=== PATIENT | female | born 1950 | race Caucasian/White ===

== ENCOUNTER 2025-04-22 12:08 | Inpatient (IN) | payer OTHER, SELFPAY ==
[2025-04-22] VITALS (31 sets, daily range): BP systolic 88–122; BP diastolic 62–111; BMI 24.2; BMI 22.5
[2025-04-22 09:34] LABS: Hematocrit 44.4 % (37.0-47.0); Hemoglobin 15.2 g/dL (12.0-16.0); Mean Corp Hgb Conc. 34.2 g/dL (33.0-37.0); Mean Corpuscular Volume 93.5 fL (81.0-99.0); Nucleated Red Blood Cells % 0 %; Platelet Count 334 10^3/uL (130-400); Red Cell Dist. Width 14.6 % (11.5-14.5)
[2025-04-22] MEDS: CARDIZEM 15 MG IV (09:39)
[2025-04-22] MEDS: CARDIZEM 125 IV ×2 (09:40→22:01)
[2025-04-22 09:57] LABS: ALT (SGPT) 113 U/L (0-35); AST (SGOT) 63 U/L (14-36); Albumin 3.8 g/dl (3.5-5.0); Alkaline Phosphatase 72 U/L (38-126); Blood Urea Nitrogen 17 mg/dl (7-17); Calcium 8.9 mg/dl (8.4-10.2); Carbon Dioxide 21 mmol/L (22-30); Chloride 108 mmol/L (98-107); Estimated Creatinine Clearance 67 ml/min; Glucose 100 mg/dl (70-99); Magnesium 2.1 mg/dl (1.6-2.3); Potassium 4.3 mmol/L (3.5-5.1); Sodium 136 mmol/L (135-145); Total Protein 5.7 g/dl (6.3-8.2); eGFR > 60.00
[2025-04-22 09:59] LABS: Troponin I 0.015 ng/ml
--- NOTE | 2025-04-22 10:18 | ED.GENMED ---
History of Present Illness
General
Chief Complaint: Chest Pain
Time Seen by Provider: 04/22/25 09:02
History of Present Illness
History of Present Illness:
74-year-old female with history of paroxysmal A-fib presents to the emergency department for evaluation of shortness of breath and dry cough that has been ongoing for the past week. She does not have any chest pain but describes a tightness
sensation. No associated fever, chills, sweats, leg swelling. She is not currently anticoagulated despite her known history of PAF
Past History
Past History
ED Past Medical History: None
ED Past Surgical History: None
Social History
Tobacco: Non-smoker
Alcohol: None
Review of Systems
Review of Systems
Allergies reviewed?: Yes
All Other Systems: ROS reviewed and negative except as documented in HPI and ROS
Phy Exam
Physical Exam
Physical Exam:
GEN: Well appearing, NAD, WDWN
HEENT: Oral mucosa moist, no scleral icterus
Cardiac: Markedly tachycardic, no murmur
Lung: No respiratory distress, no tachypnea, diminished right breath sounds
MSK: No gross deformity or injuries
Skin: Good color, no pallor or jaundice, no rashes
Neuro: AO x3, moves all extremities freely
Psych: Calm, cooperative
Scores
Heart Score for Chest Pain Patients
STEMI patient?: No
History: Slightly or Non-Suspicious
ECG: Nonspecific Repolarization
Age: >/= 65 years
Risk Factors: 1 or 2 Risk Factors
Troponin: </= Normal Limit
Heart Score for Chest Pain Patients: 4
Heart Score Risk: 20.3% MACE over next 6 weeks
Course
Orders/Labs/Results
Orders:
Orders
04/22/25 08:54
Electrocardiogram (*1) Urgent
Reason for Study: Chest Pain
EKG- Treatment ONCE
04/22/25 09:07
Diltiazem HCl [Cardizem] 15 mg IV NOW STA
04/22/25 09:08
CR Chest Portable - 1 View Urgent
Comment:
Reason For Exam: SOB
Reason Study Needs to be Portable: Other
04/22/25 09:15
Diltiazem 125 mg/125 ml Nss [Cardizem] 125 mg in 125 ml IV PER PROTOCOL
Initial dose in mg/hr, then titrate:: 5
Titrate to keep:: Heart rate 80-100 bpm
Titrate by mg/hr:: 5 mg/hr
Frequency of titrations (minutes):: 15
Maximum dose in mg/hr:: 15
04/22/25 09:21
Complete Blood Count/With Diff Urgent
Comprehensive Metabolic Panel Urgent
Magnesium Urgent
NT-proBNP Stat
Comment: COMBINED
Troponin I Stat
04/22/25 09:32
Diltiazem 125 mg/125 ml Nss [Cardizem] 125 mg in 125 ml .ROUTE .STK-MED
04/22/25 Lunch
Regular
At Your Request: Full Participation
04/22/25 10:25
Heparin 4,000 units IV NOW STA
Nursing to Place Non Medication Order As Directed
Physician Order: PTT 6 hours after initial start of Heparin infusion
Above order entered?: Yes
04/22/25 10:30
Heparin 62012 Units/250 ml 25,000 units in 250 ml IV PER PROTOCOL
Weight to be used for heparin protocol in kilograms (kg):: 67.9
Protocol:: Cardiac Tx/Acute Coronary
PTT Goal Range to be used:: PTT 73 to 111 seconds
Order type:: Initial
INITIAL Infusion Dose (UNITS/KG/hr) & then follow protocol:: 15 units/kg/hr
Infusion Dose in UNITS/hr & then follow protocol (UNITS/hr):: 1,000
INFUSION RATE in mL/hr & then follow protocol (mL/hr):: 10
PTT less than or equal to 64 seconds:: Increase rate by 200 units/hr (+ 2 mL/hr)
PTT 64.1 to 72.9 seconds:: Increase rate by 100 units/hr (+ 1 mL/hr)
PTT 73 to 111 seconds:: Target Range. No change in rate.
PTT 111.1 to 130.9 seconds:: Decrease rate by 100 units/hr (- 1 mL/hr)
PTT 131 to 199.9 seconds:: HOLD for 1 hr. Then decrease rate by 200 units/hr (- 2 mL/hr)
PTT greater than or equal to 200 seconds:: HOLD for 2 hrs & Notify Provider. Then decrease by 200 units/hr (-
2 mL/hr)
Lab follow-up:: Each change, PTT q6h until 2 consecutive are therapeutic. Then PTT
daily.
04/22/25 10:37
PTT Urgent
Comment: Obtain baseline before beginning heparin infusion if not already collected
04/22/25 11:13
Admit/Transfer Patient As Directed
Co-Sign Provider:
Level of Care: Inpatient admission
Assign to:: IVU
Physician / Group: Ellen
Diagnosis: Afib with RVR
Reason for Hospitalization: Above
Expected length of stay greater than two midnights?: Yes
ELOS- Estimated Length of Stay in days: 2
I certify the patient meets the requirements for IP care: Yes
PRN Pain Medication Management As Directed
May give lesser potent ordered pain med per pt: Yes
preference::
Protocol:: Medication orders for pain may be administered in a
manner that supports deferring to patient preference
when the pt is:
- Requesting an ordered lesser potent pain medication.
Least to most potent pain medications are defined
as: acetaminophen < NSAID < tramadol < opioids
(morphine, oxycodone, hydromorphone).
- Requesting a lesser dose of the same medication IF
ORDERED.
- Requesting a less intrusive route of administration
if both routes are prescribed by the provider (PO <
IV).
04/22/25 11:15
Code Status As Directed
Resuscitation Status: Full Code
04/22/25 17:17
PTT Urgent
Abnormal Lab Results
04/22/25
09:21
MCH 32.0 H pg
(27.0-31.0)
RDW 14.6 H %
(11.5-14.5)
MPV 10.6 H fL
(7.4-10.4)
Absolute Monos (auto) 0.7 H 10^3/uL
(0.1-0.6)
Lymphocytes % 18.8 L %
(20.5-51.1)
Chloride 108 H mmol/L
(98-107)
Carbon Dioxide 21 L mmol/L
(22-30)
Glucose 100 H mg/dl
(70-99)
AST 63 H U/L
(14-36)
ALT 113 H U/L
(0-35)
Total Protein 5.7 L g/dl
(6.3-8.2)
04/22/25 09:21
04/22/25 09:21
Vital Signs
Initial and Last Documented VS:
Initial Vital Signs
Temp Pulse Resp BP Pulse Ox
98.0 F 157 18 112/75 96
04/22/25 08:59 04/22/25 08:59 04/22/25 08:59 04/22/25 08:59 04/22/25 08:59
Last Documented Vital Signs
Temp Pulse Resp BP Pulse Ox
98.0 F 87 22 90/75 95
04/22/25 08:59 04/22/25 13:30 04/22/25 13:30 04/22/25 13:30 04/22/25 13:30
MDM/Problems Addressed
MDM/Problems Addressed:
74-year-old female presenting with rapid atrial fibrillation and mild acute CHF likely secondary to tachyarrhythmia. She was started on IV diltiazem with good rate control, blood pressures did become somewhat soft however she maintained adequate
MAP during this time. She is not a cardioversion candidate at this time given lack of anticoagulation although certainly would be reasonable for systemic anticoagulation in the future given elevated [id number] score. Will admit to the
hospitalist service for further management
Comment
Comment:
EKG independently interpreted by me shows a rapid atrial fibrillation at a rate of [address] depressions likely subendocardial ischemia
*Pulse Oximetry
SaO2: 95
Oxygen Mode of Delivery: Room air
Patient hypoxic: no
*Critical Care Note
Total Time (30-74mins, 75-104mins- exclusive of procedures): 40 mins
comment:
Critical care time: 40 min
Critical care time was exclusive of: Separately billable procedures, treating other patients, and teaching time
Critical care was necessary to treat or prevent imminent or life-threatening deterioration of the following conditions: Rapid Atrial fib
Critical care time spent personally by me on the following activities:
[x] Review of old charts
[x] Obtaining history from patient or surrogate
[x] Ordering and review of the laboratory studies
[x] Ordering and review of radiographic studies
[x] Ordering and performing treatments and interventions
[x] Patient patient's response to treatment
[x] Development of treatment plan with patient or surrogate
ED Attending Note
-
Portions of this chart may have been created with voice recognition software.� Occasional wrong word or��sound alike� substitutions may have occurred due to the inherent limitations of voice recognition software.
Discharge Plan
Departure
Patient Disposition: Admit
Date of Disposition: 04/22/25
Time of Disposition: 10:27
Admit to: IMU
Presentation/result/management discussed w/ accepting MD/DO: Hospitalist
Discharge Problem:
Atrial fibrillation with RVR
Interventions
Interventions:
*Risk Screen - Suicide Last Done: 04/22/25 08:59
*General Assessment Last Done: 04/22/25 11:59
*Neglect/Abuse Screening Last Done: 04/22/25 08:59
*ED- Fall Risk Assessment Last Done: 04/22/25 11:59
*ED COVID-19 Vaccine History Last Done: 04/22/25 11:59
ED- Cardiac Assessment Last Done: 04/22/25 09:23
[2025-04-22 10:59] LABS: APTT 27.3 Sec (23.4-35.0)
[2025-04-22] MEDS: HEPARIN 4000 UNITS IV (11:17)
[2025-04-22] MEDS: HEPARIN 25000 UNITS/250 ML IV (11:17)
--- NOTE | 2025-04-22 11:18 | HPS.HSE ---
Family Physician
-
Family Physician: Judy Sherman
Chief Complaint
-
Exertional dyspnea and chest pressure
History of Present Illness
Patient is a 74 years old female with history of paroxysmal A-fib,, CHF mildly reduced EF, colorectal carcinoma who presents to the emergency room with exertional dyspnea, chest pressure and palpitations. Patient has been hospitalized in 2019 when
found to be in paroxysmal A-fib, CHF, pleural effusion requiring thoracentesis. At that time patient required cardioversion and was discharged on beta-simone and Eliquis. Shortly after within the months as patient could recall she made decision
to stop all the medications given absence of symptoms. She had no cardiology follow-up since that time. Her most recent hospitalization was for elective sigmoid resection for colorectal carcinoma back in May 2023. At that time patient reports
no cardiovascular issues.
Medical History
Past Medical History
Past Medical History: Reports Arrhythmia (Paroxysmal A-fib) and Cancer (Colorectal carcinoma)
Past Surgical History: Reports Bowel Resection
Social History
Tobacco: Non-smoker
Alcohol: None
Drug: None
Living: With Family
Family History
Family History: Not pertinent
Allergies / Home Medications
Allergies reflects when Allergies were last updated in [facility].
Home Medications with original date entered in [facility]
Allergy/Medication List:
Allergies
Allergy/AdvReac Type Severity Reaction Status Date / Time
morphine Allergy Arm Verified 04/22/25 09:00
Swelling
when given
IV
Home Medications
szpkmwxh-nhzd-jpef 8 mg-folic 400 mcg-K 50 mcg-lutein 300 mcg tablet (Centrum Silver Women) 1 tab PO DAILY Supplement 05/22/23
acetaminophen 325 mg tablet 650 mg (2 x 325 mg) PO Q4HPRN PRN mild pain #1 tab 05/27/23
Review of Systems
-
A 12 point ROS was completed and negative except as noted: Yes
Physical Exam
Vital Signs
Vital Signs
Temp Pulse Resp BP Pulse Ox
98.0 F 87 21 120/102 95
04/22/25 08:59 04/22/25 09:45 04/22/25 09:45 04/22/25 09:45 04/22/25 10:20
Physical Exam
General: Well Developed, Well Nourished and No Apparent Distress
HEENT: NormoCephalic, Moist mucous membranes and Atraumatic
Respiratory: Clear
Cardiac: S1/S2 and Regular Rhythm; No Murmur or Rub
GI: Soft, Non Tender, Non Distended and Normal Bowel Sounds; No Organomegaly
Rectal: Deferred by Provider
Musculoskeletal: No Clubbing, No Cyanosis and No Edema
Skin: No Rash
Neuro: Nonfocal/grossly intact
Laboratory Results
-
04/22/25 09:21
04/22/25 09:21
Laboratory Results
APTT 27.3 Sec (23.4-35.0) 04/22/25 10:37
Total Bilirubin 1.2 mg/dl (0.2-1.3) 04/22/25 09:21
AST 63 U/L (14-36) H 04/22/25 09:21
ALT 113 U/L (0-35) H 04/22/25 09:21
Alkaline Phosphatase 72 U/L (38-126) 04/22/25 09:21
Troponin I 0.015 ng/ml 04/22/25 09:21
Impression/Plan
-
IMPRESSION:
Paroxysmal atrial fibrillation.
CHF unknown EF (presents with exertional dyspnea, elevated pro CHF BNP, mild interstitial edema on chest x-ray) in the settings of rapid ventricular rate
Elevated transaminases
History of moderate to severe TR in the settings of volume overload.
History of pleural effusion related to CHF requiring thoracentesis in 2019
PLAN:
Paroxysmal atrial fibrillation with RVR.
Patient with prior history of such. Not on any rate control or anticoagulation meds prior to admission.
Noted mild hypotension improved with rate control
Initiated on IV Cardizem drip
CHADSVasc 3 (age, female, CHF) initiated on IV heparin drip
Echocardiogram
Cardiology evaluation
CHF, unknown EF.
She has prior history of such in the settings of rapid A-fib. At that time mild reduced EF.
Repeat echocardiogram.
Monitor volume status closely.
May require gentle diuresis.
Abnormal LFT with elevation of transaminases baseline possibly secondary to congestion.
Follow. Consider further workup including imaging if up-trending
Full code
DVT prophylaxis heparin
--- NOTE | 2025-04-22 14:22 | CON.CAR ---
Addendum entered and electronically signed by Rosanna Sexton MD 04/22/25 17:36:
I saw and evaluated the patient, and I provided the substantive portion of the medical decision making.
I reviewed and agree with the note by Myriam Cuellar and it accurately reflects our care.
I personally performed the medical decision making of the this encounter and my assessment and plan is below:
74-year-old female with a past medical history of paroxysmal atrial fibrillation in 2019 complicated by CHF and colorectal cancer in 2022 who stopped all her medications upon completion of the initial prescriptions in 2019 presented to the ER for
shortness of breath, dyspnea on exertion and fatigue for 1 week. She was noted to be in atrial fibrillation with rapid ventricular response. Currently, she is feeling better but still knows that something is not right in her chest. She had a
stressful week with the of her tkxivz-uw-vpv. She is quite active walking 2 miles a day. 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
On exam she is irregularly irregular rate and rhythm with a normal S2 no murmurs or gallops were appreciated lungs were clear to auscultation bilaterally alert and oriented x 3 in no apparent distress.
EKG shows atrial fibrillation with rapid ventricular response and T wave inversions.
Troponin is insignificant at 0.017, 0.015, 0.016.
Assessment and plan
Recurrent atrial fibrillation in a patient with a known history of paroxysmal atrial fibrillation.' Fortunately she was not compliant with medications and has not been on Eliquis. Therefore we will arrange for KEILA cardioversion tomorrow. Will
arrange to keep her n.p.o. after midnight.
History of heart failure with recovered EF, was only ever mildly depressed at 45 to 50%: Will update echocardiogram and EF. Initiate GDMT as needed. She is [place] Heart Association class I without any apparent decompensation currently.
[ ]
Original Note:
Consultation
Consultation Request
Date/Time Consultation Requested: 04/22/25 11a
Date/Time Consultation Performed: 04/22/25 1:45p
Requesting Provider: Dr. Hughes
Performing Provider: SYED Tate for Dr. Sexton
Reason for Consultation: rapid Afib
Medical History
-
Chief Complaint: palpitations, sob
History of Present Illness:
Mrs. Dias is a 74 yo female with paroxysmal Afib (12/2019 s/p DCCV, was on Eliquis and Toprol 25mg daily but stopped meds after completed prescription) complicated by CHF/pleural effusion requiring thoracentesis 12/2019, and colorectal cancer 2022 s/p
resection, who presents to the ER with c/o palpitations, SOB/YANEZ and fatigue for 1 week. She was noted to be in rapid Afib in 160s on arrival to ER. She is admitted to the hospitalist service and we are consulted for rapid Afib. She is on a
Cardizem drip at 10 mg/hr and rates have improved into the low 100s. She currently denies any cardiac symptoms. [id number] score is 3 (age, female, CHF), though she is not currently taking Eliquis or Toprol.
Past Medical History
Past Medical History: Other (As above)
Past Surgical History: Other (as above)
Social History
Tobacco: Non-Smoker
Alcohol: Occasional (1 glass of wine a week)
Personal:
Living: With Family
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
Allergies / Home Medications
Allergy/AdvReac Type Severity Reaction Status Date / Time
morphine Allergy Arm Verified 04/22/25 09:00
Swelling
when given
IV
�Medication �Instructions �Recorded �Confirmed �Type
vnosmfjv-mffs-tqqf 8 mg-folic 400 1 tab PO DAILY Supplement 05/22/23 04/22/25 History
mcg-K 50 mcg-lutein 300 mcg tablet
(Centrum Silver Women)
acetaminophen 325 mg tablet 650 mg (2 x 325 mg) PO Q4HPRN PRN 05/27/23 04/22/25 Rx
mild pain #1 tab
Review of Systems
-
History Source: Patient
All other systems: Negative unless noted
Physical Exam
Vital Signs
Temp Pulse Resp BP Pulse Ox
98.0 F 87 22 90/75 95
04/22/25 08:59 04/22/25 13:30 04/22/25 13:30 04/22/25 13:30 04/22/25 13:30
Lab Results
04/22/25 09:21
04/22/25 09:21
Troponin I 0.015 ng/ml 04/22/25 09:21
Hmr-T-Klrggqyfpah Pept 4300 pg/ml 04/22/25 09:21
Eri-H-Fhwdrbijavf Pept Cancelled 04/22/25 09:21
Physical Exam
General: Well Developed, Well Nourished and No Apparent Distress
HEENT: Normocephalic, Anicteric and Moist Mucous Membranes
Respiratory: Clear and Non Labored Respirations
Cardiac: S1/S2 and Irregular Rhythm (tachycardia )
Breast: Deferred by me
GI: Soft, Non Tender, Non Distended and Normal Bowel Sounds
Rectal: Deferred by Provider
Genito-urinary: Clear Urine
Musculoskeletal: No Clubbing, No Cyanosis and No Edema
Skin: Warm and Dry
Neuro: AO x 3
Hematologic/Lymphatic: No Lymphadenopathy
Psych: Calm
Impression / Plan
-
Atrial fibrillation - rapid ventricular response, duration unknown.
- Initially rates in the 160s, now on Cardizem drip with rates in the low 100s and currently asymptomatic.
- Previously she was on Toprol 25 mg daily, but when the prescription ran out she stopped the medication.
- [id number] score is 3 (age, female, CHF), she was on Eliquis 5 mg twice daily but when the prescription ran out she stopped the medication.
- Start Eliquis 5 mg twice daily.
- Plan for KEILA and cardioversion tomorrow, NPO after midnight.
HFpEF - chronic in the setting of rapid Afib back in 12/2019.
- no overt HF on exam.
- monitor.
Colorectal cancer - s/p resection 2022.
- stable.
Data Reviewed
-
EKG: Tracing Personally Visualized and interpreted (Afib 160 bpm )
Radiology: Report Reviewed by me (CXR: no pulmonary edema)
Labs: Labs Reviewed by me
Old Records: Reviewed
--- NOTE | 2025-04-22 16:04 | PTCARENOTE ---
Rec'd pt from ED. Cardizem gtt infusing at 10ml/hr and heparin gtt infusing at 10 ml/hr. Tele- afib. HR 80-110s. Assessment completed as documented. Pt has no complaints pain/discomfort/sob at this time. Oriented pt to room. Currently in bed; call
arely w/in reach.
[2025-04-22 17:19] LABS: APTT 86.6 Sec (23.4-35.0)
[2025-04-22 17:25] LABS: Troponin I 0.016 ng/ml
[2025-04-22] MEDS: TYLENOL 650 MG PO (19:53)
[2025-04-22 22:51] LABS: APTT 113.2 Sec (23.4-35.0)
[2025-04-22 23:03] LABS: Troponin I 0.017 ng/ml
[2025-04-22] MEDS: PROTONIX IV 40 MG IV (23:24)
[2025-04-22] MEDS: NSS (PRESERVATIVE FREE) 10 ML IV (23:24)
[2025-04-23] VITALS (7 sets, daily range): BP systolic 103–128; BP diastolic 76–91; BMI 22.3
--- NOTE | 2025-04-23 00:03 | PTCARENOTE ---
Pt reported chest pressure rating pressure as 4/10 at 22:30. Pt denies chest pain or difficulty breathing pulse ox 93% on room air. Pt remains afib on TELE monitor and bp 96/68. EKG obtained and lab work collected as ordered. SYED Alberto
notified via [employer]. Rec'd order for extra strength Tylenol and IV Protonix. Pt refused tylenol but got IV protonix as ordered. 2L oxygen applied via nasal canula for comfort, pt reported relief with oxygen at 22:46. Cardizem infusing as
ordered. Pt now resting with call mcgee in reach. See MAR and flowchart for full pt care and assessment. Pt agreed to report any worsening chest pain or discomfort.
[2025-04-23 05:13] LABS: Hematocrit 41.0 % (37.0-47.0); Hemoglobin 14.0 g/dL (12.0-16.0); Mean Corp Hgb Conc. 34.1 g/dL (33.0-37.0); Mean Corpuscular Volume 93.4 fL (81.0-99.0); Nucleated Red Blood Cells % 0 %; Platelet Count 259 10^3/uL (130-400); Red Cell Dist. Width 14.9 % (11.5-14.5)
[2025-04-23 05:23] LABS: APTT 111.1 Sec (23.4-35.0)
[2025-04-23 05:51] LABS: Blood Urea Nitrogen 18 mg/dl (7-17); Calcium 8.6 mg/dl (8.4-10.2); Carbon Dioxide 23 mmol/L (22-30); Chloride 111 mmol/L (98-107); Estimated Creatinine Clearance 75 ml/min; Glucose 88 mg/dl (70-99); Potassium 4.3 mmol/L (3.5-5.1); Sodium 138 mmol/L (135-145); eGFR > 60.00
[2025-04-23] MEDS: THERAGRAN 1 TABLET PO (07:46)
[2025-04-23] MEDS: ELIQUIS 5 MG PO (09:28)
[2025-04-23 09:48] LABS: ALT (SGPT) 97 U/L (0-35); AST (SGOT) 44 U/L (14-36); Albumin 3.3 g/dl (3.5-5.0); Alkaline Phosphatase 60 U/L (38-126); Total Protein 5.1 g/dl (6.3-8.2)
--- NOTE | 2025-04-23 11:06 | W.PN.CD ---
Today's Communication / Plan
-
IV diuresis
start Valsartan tonight
Pricing of GDMT
NPO after midnight for cath
Impression / Plan
-
A/P: 74 yo female with hx of paroxysmal AF, HFmildlyreducedEF, colorectal CA who came in with SOB. She was found to be in AF RVR and has been cardioverted to SR. 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
ischemia.
Atrial fibrillation - rapid ventricular response, duration unknown.
-now back in SR
- Therapeutic lovenox tonight in anticipation of cath tomorrow
- Eliquis thereafter
- start metop XL
HFrEF EF ~15-20% possibly tachy induced from AF RVR vs ischemia vs stress induced with recent in family
- formal echo today/tomorrow
- ischemic eval with cath tomorrow
- pricing GDMT of sglt2i and entresto
- IV diuresis today 40 mg IV
- She likely has component of HF contributing to her dyspnea and will hold off on BB today
- start valsartan tonight
Moderate to severe MR
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
- suspect will improve with diuresis
Colorectal cancer - s/p resection 2022.
- stable.
Physical Exam
Vital Signs/Labs
Vital Signs
Temp Pulse Resp BP Pulse Ox
98.1 F 101 17 109/82 96
04/23/25 07:00 04/23/25 04:46 04/23/25 07:00 04/23/25 04:46 04/23/25 07:00
04/22/25 04/23/25 04/24/25
06:59 06:59 06:59
Actual Weight 134 lb 4.184 oz
04/23/25 04:54
04/23/25 04:54
APTT 111.1 Sec (23.4-35.0) H 04/23/25 04:54
Magnesium 2.1 mg/dl (1.6-2.3) 04/22/25 09:21
04/22/25 04/22/25
09:21 09:21
Vid-E-Tpyficshnnu Pept Cancelled 4300
LAB Results
04/22/25 04/22/25 04/22/25
: 16:52 22:30
Troponin I 0.015 0.016 0.017
Physical Exam
Constitutional: No acute distress and Comfortable
EENT: Anicteric
Cardiovascular: Pedal edema is absent and Rhythm/rate is irregular
Respiratory: Respiratory effort normal and Other (faint crackles )
GI: Soft
Neuro/Psych: AO x 3
Data Reviewed
-
Date of Service: April 23, 2025
Medical Decision Making: Reviewed Test Results
EKG: Tracing Personally Visualized and interpreted (af then SR )
Echo: Tracing Personally Visualized and interpreted
Labs: Labs Reviewed by me
[2025-04-23] MEDS: LASIX 40 MG IV (12:03)
--- NOTE | 2025-04-23 12:26 | CM ---
priced med with pts future scripts: pt does not have a deductible with this plan, this is the hull per month.
jardiance $146/month
Entresto- $163/month
farxiga $140/month
eliquis $140/month
--- NOTE | 2025-04-23 14:18 | CM ---
spoke to pt in room, she is prev indep, lives withher husb in a 2 story homew ith no steps toenter. she has a cane and a walker at home to use if needed. plan is for dc to home when medically stable.
--- NOTE | 2025-04-23 14:29 | W.PN.HOSP.TC ---
Today's Communication/Plan
-
See plan
Assessment / Plan
Assessment / Plan
Impression
Patient is a 74 years old female with history of paroxysmal A-fib,, CHF mildly reduced EF, colorectal carcinoma who presents to the emergency room with exertional dyspnea, chest pressure and palpitations. Patient has been hospitalized in 2019 when
found to be in paroxysmal A-fib, CHF, pleural effusion requiring thoracentesis. At that time patient required cardioversion and was discharged on beta-simone and Eliquis. Shortly after within the months as patient could recall she made decision
to stop all the medications given absence of symptoms. She had no cardiology follow-up since that time. Her most recent hospitalization was for elective sigmoid resection for colorectal carcinoma back in May 2023. At that time patient reports
no cardiovascular issues.
Paroxysmal atrial fibrillation with rapid ventricular response.
Acute CHF reduced EF.
Elevated transaminases, mild and likely secondary to congestion.
History of moderate to severe TR in the settings of volume overload.
History of pleural effusion related to CHF requiring thoracentesis in 2019
Plan.
Paroxysmal atrial fibrillation with rapid ventricular response.
Status post DCCV cardioversion 04/23, successful to sinus rhythm.
Off IV Cardizem
Initiated on metoprolol XL 25 mg daily
CV score 3. Initiated anticoagulation with Eliquis, first dose given prior to DCCV. Bridging with therapeutic dose of Lovenox pending ischemic evaluation
Cardiomyopathy
KEILA estimated LVEF 15%
2D echo pending for reassessment
Suspect nonischemic cardiomyopathy with longstanding A-fib
Ischemic evaluation left heart cath planned for 04/24
Adjust GDMT pending pricing for SGLT2 inhibitor, ARNI
IV diuresis
Monitor hemodynamic and renal function
Elevated transaminases
No GI symptoms
Suspect congestion
Monitor trend
Anticipated Discharge: 24 - 48 hours
Subjective/Interval History
-
Date of Service: April 23, 2025
Objective Data
-
Labs:
Laboratory Results
04/23/25 04/23/25
04:54 12:45
WBC 6.6
Hgb 14.0
Hct 41.0
Plt Count 259 D
APTT 111.1 H Pending
Sodium 138
Potassium 4.3
Chloride 111 H
Carbon Dioxide 23
BUN 18 H
Creatinine 0.6
Glucose 88
Calcium 8.6
Total Bilirubin 1.0
AST 44 H
ALT 97 H
Alkaline Phosphatase 60
Vital Signs:
Vital Signs
Temp Pulse Resp BP Pulse Ox
98.1 F 101 17 109/82 97
04/23/25 07:00 04/23/25 04:46 04/23/25 07:00 04/23/25 04:46 04/23/25 08:00
I&O
04/22/25 04/23/25 04/24/25
06:59 06:59 06:59
Intake Total 710 / 710
Output Total 650 / 650 2099 / 2099
Balance 60 / 60 -2099
Physical Exam
-
General: Well Developed and No Apparent Distress
HEENT: Normocephalic, Atraumatic and Moist Mucous Membranes
Respiratory: Rales
Cardiac: Regular Rhythm and S1/S2; Negative Murmur, Rub or Gallop
GI: Soft, Nontender, Nondistended and Normal Bowel Sounds; Negative Organomegaly
Rectal: Deferred by Provider
Musculoskeletal: No Clubbing, No Cyanosis and No Edema
Skin: Negative Rash
Neuro: Nonfocal/Grossly Intact
[2025-04-23] MEDS: TOPROL XL 25 MG PO (14:52)
--- NOTE | 2025-04-23 18:00 | PTCARENOTE ---
Pt received this am in afib, rate in the 70's to 80's. Returned post KEILA/CV in SR, rate in the 60's to 100's. Pt SOB upon arrival back to the floor from the CV. O2 applied at 2LNC, Sat 97% on the O2. Medicated with Lasix 40mg IV as ordered with
relief of the sob and off the O2 after 1/2 hour. Short run of SVT noted, asymptomatic. Dr. Sexton aware and reviewed the SVT on the monitor. Pt states she feels much better at this time.
[2025-04-23] MEDS: DIOVAN 40 MG PO (18:12)
[2025-04-23] MEDS: LOVENOX 60 MG SC (21:49)
[2025-04-24] VITALS (45 sets, daily range): BP systolic 73–128; BP diastolic 50–104; BMI 21.2
--- NOTE | 2025-04-24 05:58 | PTCARENOTE ---
Pt NSR on monitor with short runs of SVT. Pt stated she can feel palpitations in the chest at that time. VSS. Pt denies SOB or YANEZ. Pt ambulates independently in the room. Call arely w/in reach
[2025-04-24] MEDS: CORDARONE 103 MG IV ×2 (08:23→12:15)
[2025-04-24] MEDS: CORDARONE 518 MG IV (08:58)
[2025-04-24] MEDS: TOPROL XL 25 MG PO (10:13)
[2025-04-24] MEDS: DIOVAN 40 MG PO (10:13)
[2025-04-24] MEDS: THERAGRAN 1 TABLET PO (10:13)
--- NOTE | 2025-04-24 13:22 | W.PN.HOSP.TC ---
Today's Communication/Plan
-
Left heart cath
IV Amio
Post cath Eliquis
GDMT including diuresis to be determined both cath
Assessment / Plan
Assessment / Plan
Impression
Patient is a 74 years old female with history of paroxysmal A-fib,, CHF mildly reduced EF, colorectal carcinoma who presents to the emergency room with exertional dyspnea, chest pressure and palpitations. Patient has been hospitalized in 2019 when
found to be in paroxysmal A-fib, CHF, pleural effusion requiring thoracentesis. At that time patient required cardioversion and was discharged on beta-simone and Eliquis. Shortly after within the months as patient could recall she made decision
to stop all the medications given absence of symptoms. She had no cardiology follow-up since that time. Her most recent hospitalization was for elective sigmoid resection for colorectal carcinoma back in May 2023. At that time patient reports
no cardiovascular issues.
Paroxysmal atrial fibrillation with rapid ventricular response.
Acute CHF reduced EF.
Elevated transaminases, mild and likely secondary to congestion.
History of moderate to severe TR in the settings of volume overload.
History of pleural effusion related to CHF requiring thoracentesis in 2019
Plan.
Paroxysmal atrial fibrillation with rapid ventricular response.
Status post DCCV cardioversion 04/23, successful to sinus rhythm.
Back to A-fib with RVR as of 04/24
Initiated on IV amiodarone
Initiated on metoprolol XL 25 mg daily
CV score 3. Initiated anticoagulation with Eliquis, first dose given prior to DCCV. Bridging with therapeutic dose of Lovenox pending ischemic evaluation
Cardiomyopathy
KEILA estimated LVEF 15%
2D echo pending for reassessment
Suspect nonischemic cardiomyopathy with longstanding A-fib
Ischemic evaluation left heart cath planned for 04/24
Adjust GDMT pending pricing for SGLT2 inhibitor, ARNI
Improved with IV diuresis
Monitor hemodynamic and renal function
Elevated transaminases
No GI symptoms
Suspect congestion
Monitor trend
Anticipated Discharge: 24 - 48 hours
Subjective/Interval History
-
Date of Service: April 24, 2025
Objective Data
-
Vital Signs:
Vital Signs
Temp Pulse Resp BP Pulse Ox
98 F 138 16 111/74 93
04/24/25 11:28 04/24/25 10:45 04/24/25 11:28 04/24/25 10:45 04/24/25 11:28
I&O
04/23/25 04/24/25 04/25/25
06:59 06:59 06:59
Intake Total 710 / 710
Output Total 650 / 650 3250 / 3250 130 / 130
Balance 60 / 60 -3250 / -3250 -130 / -130
Physical Exam
-
General: Well Developed and No Apparent Distress
HEENT: Normocephalic, Atraumatic and Moist Mucous Membranes
Respiratory: Clear to Auscultation
Cardiac: Regular Rhythm and S1/S2; Negative Murmur, Rub or Gallop
GI: Soft, Nontender, Nondistended and Normal Bowel Sounds; Negative Organomegaly
Rectal: Deferred by Provider
Musculoskeletal: No Clubbing, No Cyanosis and No Edema
Skin: Negative Rash
Neuro: Nonfocal/Grossly Intact
--- NOTE | 2025-04-24 14:28 | W.PN.CD ---
Today's Communication / Plan
-
Cardiac catheterization today.
Consider digoxin vs. dofetilide vs. ablation.
Filling pressures will dictate diuretic regimen.
Impression / Plan
-
Impression/Plan: 74 yo female with hx of paroxysmal AF, HFmildlyreducedEF and colorectal CA presenting with SOB, subsequently found to be in AF RVR with worsened INSPECTOR TOYS (LVEF now 15-20%).
#HFrEF
-Worsening (EF ~15-20%, previously 45-50% on 01/10/2020, improving to 55-60% on 05/05/2020).
-Multiple possible mechanisms, including tachy induced from AF RVR, ischemia and/or stress induced with recent in family.
-KEILA cardioversion yesterday, but she has lapsed back into atrial fibrillation this morning.
-Plan for R/L cardiac catheterization today to clarify coronary anatomy, assess filling pressures and CI.
-GDMT as hemodynamics will tolerate:
-Diuretics: Received furosemide 40 mg IV x1 yesterday. BP tenuous.
-Beta Ami: Metoprolol succinate 25 mg daily.
-ACEI/ARB/ARNi: Valsartan 40 mg PO daily.
-MRA: None.
-SGLT2i: Start dapagliflozin 10 mg daily.
-ICD: Not yet indicated.
#Atrial fibrillation
-Presented with rapid ventricular response, duration unknown.
-NSR restored after KEILA guided DCCV, subsequently deteriorated into AF-RVR overnight.
-Rate/rhythm control with metoprolol, amiodarone gtt.
-CHADS2-Vasc = 3 (CHF, Age x1, Female).
-Apixaban changed to enoxaparin in anticipation of cath. Ok to resume apixaban this evening (obligatory after DCCV stunning of LA).
-If the patient's rate cannot be better controlled, we will need to consider loaded with digoxin, dofetilide or inpatient AF ablation.
#Moderate to severe MR
-New diagnosis.
-Contributing to the patient's HFrEF and AF.
-Likely functional in nature given component of CHF and INSPECTOR TOYS.
-Monitor with diuresis.
-LVEF < 20% makes the patient less than ideal for M-JORGE.
#Colorectal cancer
-Chronic, s/p resection 2022.
-Stable.
Subjective/Interval History:
Furosemide 40 mg IV given yesterday.
Weight down 3.2 kg from yesterday (57.7 kg <-- 60.9 kg).
Patient underwent KEILA guided DCCV yesterday.
Apixaban substituted with enoxaparin in anticipation of cardiac catheterization today.
The patient lapsed back into AF/RVR. Metoprolol and amiodarone gtt started.
DATA:
Transesophageal echocardiogram, 04/23/2025:
SUMMARY
1. Dilated LV with severely reduced systolic function.
2. LVEF is 15-20% by visual estimation. Global diffuse hypokinesis.
3. Normal RV size with reduced systolic function.
4. Moderate to severe likely functional mitral regurgitation.
5. No left atrial appendage thrombus.
6. No prior study available for comparison.
Transthoracic echocardiogram, 04/23/2025:
SUMMARY
1. Left ventricular ejection fraction is moderately reduced with an ejection fraction of 32 % by Wiggins's biplane method of discs.
2. Stage III diastolic dysfunction suggestive of restricted filling pattern and increased filling pressures
3. Moderate to severe mitral valve regurgitation.
4. Moderate to severe tricuspid regurgitation.
5. Estimated pulmonary artery pressure of 51 mmHg assuming a right atrial pressure of 3 mmHg.
6. Compared to the prior on 05/05/2020, the prior echocardiogram was normal.
Physical Exam
Vital Signs/Labs
Vital Signs
Temp Pulse Resp BP Pulse Ox
36.6 C 138 16 111/74 93
04/24/25 11:28 04/24/25 10:45 04/24/25 11:28 04/24/25 10:45 04/24/25 11:28
04/23/25 04/24/25 04/25/25
11:59 11:59 11:59
Actual Weight 60.9 kg 57.7 kg
04/23/25 04:54
04/23/25 04:54
APTT Cancelled 04/23/25 12:45
Magnesium 2.1 mg/dl (1.6-2.3) 04/22/25 09:21
04/22/25 04/22/25
09:21 09:21
Qxu-[id number] Pept Cancelled 4300
LAB Results
04/22/25 04/22/25 04/22/25
: 16:52 22:30
Troponin I 0.015 0.016 0.017
Physical Exam
Constitutional: No acute distress and Comfortable
EENT: Anicteric and Moist mucous membranes
Cardiovascular: Pedal edema is absent, JVD pressure is normal, Rhythm/rate is irregular, Systolic murmur present and S1S2 is normal
Respiratory: Respiratory effort normal, Lungs clear to auscul., Wheeze Absent, Crackles Absent and Rhonchi Absent
GI: Soft, Distention absent, Flat, Non tender and Normal bowel sounds
Neuro/Psych: AO x 3
Data Reviewed
-
Date of Service: April 24, 2025
Medical Decision Making: Reviewed Test Results, Independent Historian Assessment and Test Interpretation
EKG: Tracing Personally Visualized and interpreted and Report Reviewed by me
Echo: Tracing Personally Visualized and interpreted and Report Reviewed by me
X-Ray/CT/US/MRI/NUC/PET: Image Personally Visualized and interpreted and Report Reviewed by me
Medical Tests (PFT, Pathology etc): Image Personally Visualized and interpreted and Report Reviewed by me
Labs: Labs Reviewed by me
Old Records: Reviewed
--- NOTE | 2025-04-24 15:09 | ITS.CL.CATH ---
[facility] - Catheterization
Cardiac Catheterization
Procedure Report:
CARDIAC CATHETERIZATION REPORT
Date of Procedure: 04/24/2025
Referring: Obdulia Sexton M.D.
Indication: New cardiomyopathy.
PROCEDURE:
1. Right heart catheterization.
2. Coronary angiography.
3. Left heart catheterization.
4. Left ventriculography.
A total of 12 minutes of procedural/moderate sedation was utilized. An independent medical office rep was present to assist with and help manage the patient's level of consciousness and physiologic status.
ACCESS:
1. 6 [place] right radial artery using a modified Seldinger technique.
2. 5 [place] right antecubital vein using a previously placed IV.
CATHETERS:
1. 5 [place] balloon wedge.
2. 5 [place] JL 3.5.
3. 5 [place] JR4.
4. 5 [place] angled pigtail.
HEMODYNAMIC DATA
Weight (kg): 57.6
AO (s/d/x, mmHg): 103/63/76
LV (s/x, mmHg): 103/20
PCWP (a/v/x, mmHg): 35/40/23
PA (s/d/x, mmHg): 44/23/29
RV (s/x, mmHg): 44/12
RA (a/v/x, mmHg): 15/13/12
SVC SvO2 (%): 62.2
IVC SvO2 (%): Not obtained.
RA SvO2 (%): Not obtained.
RV SvO2 (%): Not obtained.
PA SvO2 (%): 60.5
SaO2 (%): 86.9
Hbg (g/dL): 15.5
LESTER
CO (L/min): 3.66
CI (L/min/m2): 2.25
Thermodilution
CO (L/min): Not performed.
CI (L/min/m2): Not performed.
TPG (mmHg): 6
PVR (Mohr Units): 1.64
SVR (dynes*seconds*cm^-5): 1399
AVO2 Diff (Volume %): 5.57
AV gradient (x, mmHg): None.
AV area (cm2): Normal.
MV gradient (x, mmHg): Not obtained.
MV area (cm2): Not obtained.
LEFT VENTRICULOGRAPHY: Performed in an RODRIGUEZ projection. Severely dilated left ventricle with severe global hypokinesis and severely reduced systolic function. Left ventricular ejection fraction estimated at 15%. There is severe mitral valve
regurgitation. There is no evidence of aortic valve insufficiency. The aortic root, ascending aorta and visualized descending aorta appear normal.
AORTOGRAPHY: Not performed.
CORONARY ANGIOGRAPHY
Dominance: Right.
Left Main: Normal size, trifurcating vessel. There is no coronary artery disease.
LAD: Normal size vessel giving rise to 2 diagonals. There is no coronary artery disease.
Ramus: Small size, vestigial vessel. There is no coronary artery disease.
Circumflex: Small size, nondominant vessel giving rise to 1 obtuse marginal which subsequently gives rise to several inferior daughter branches. There is no coronary artery disease.
RCA: Large size, dominant vessel with a large posterolateral arcade. There is no coronary artery disease.
INTERVENTIONS
None.
Closure Device: Vascular band for the right radial artery, manual pressure for the right antecubital vein.
Radiation dose (mGy): 265.19
DAP (cm2.Gy): 18.0397
Fluoroscopy time (minutes): 2.7
CONCLUSIONS:
1. Right dominant circulation with no coronary artery disease.
2. Severe left ventricular dilation with severe global hypokinesis and severe reduction in systolic function, left ventricular ejection fraction 15%.
3. Severe mitral valve regurgitation.
4. Moderately elevated filling pressures (LVEDP = 20 mmHg, PCWP = 23 mmHg at 57.6 kg), likely appropriate given severity of systolic dysfunction.
5. Preserved cardiac index (2.25 L/min/m�).
RECOMMENDATIONS:
1. Expectant management after cardiac catheterization via right radial/antecubital approach.
2. Limited weight bearing on the right wrist for one week.
3. GDMT as hemodynamics will permit.
4. Aggressive treatment of atrial fibrillation, favoring rhythm control. Consider inpatient atrial fibrillation ablation versus loading with antiarrhythmic drug.
5. We will consider digoxin load to assist with inotropy he as well as rate control.
7. Guarded prognosis.
Copy to: Obdulia Sexton M.D., Driss Dean M.D., Judy Sherman M.D.
Jai Stiles DO, FACC, FACP
--- NOTE | 2025-04-24 19:00 | SUR.OPER ---
~0700: Handoff report received from nightshift RN. Pt AOx4, NSR on tele, RA. Call mcgee within reach.
~0745: Patient red alarmed on tele for HR 188. Pt walking back from the bathroom at this time. This RN went into room and instructed for patient to get back in bed. Pt denies SOB/YANEZ, lightheaded/dizziness, or CP at this time. Patient does state
that she feels the palpitations in her chest. Vagal Maneuver attempted multiple times unsuccessfully. SBP remains 100s, SpO2 93%. Tracie Oleary GRIND OPERATOR showed 'unavailable' on TT, so messaged Rosanna Sexton about status of patient, no response.
Messaged Rosanna Sexton again and sent priority TT, orders placed for amio bolus and gtt. Amio bolus hung as soon as received bag from pharmacy. SBP remains 100s.
~0004-7749: Pt Aox4, Afib 120s-200s (with movement/talking), SBP 100s, RA satting 95%. Pt denies pain at this time. Amio gtt infusing @ 1mg/min at this time. Pt educated to remain in bed, but if need to get up for anything to use call mcgee d/t high
HR. Tracie Oleary, GRIND OPERATOR made aware that pt HR does go up to 200s just with talking despite being on amio, awaiting response at this time. Pt NPO at this time for possible CCL later. All needs met at this time, call mcgee within reach.
~2298-7190: Another Amio bolus ordered by cardiology, bolus hung and infused per order. HR remains 120-130s, Afib. Called report to CCL and informed them of rhythm change. Waiting to hear back if patient will still go for cath despite her current
rate and rhythm.
~1496-0765: Patient in bed resting. Pt Ambulated to bathroom prior to CCL, HR afib went up to 185, asymptomatic at this time. Patient wheeled to [facility] via bed around 1400.
~1600: patient returned from CCL. AOx4, Afib 120s, SBP 100s, RA. Amio gtt rate changed to 0.5mg/min per protocol. TR band R radial in place, site CDI. R brachial dressing CDI at this time. Patient educated on post-op instructions.
~7726-9170: Air attempted to be removed from band multiple times, however site oozing, air replaced. Around 1830, 1cc able to remove safelty removed from band without site oozing. Pt hypotensive with BP 81/57 on 0.5mg/min amio, pt asymptomatic at
this time. Dr. Neri made aware, no new orders at this time. Pt instructed to saty in bed and use call mcgee for assistance. Handoff report given to austin JIMENEZ.
[2025-04-24] MEDS: ELIQUIS 5 MG PO (21:33)
[2025-04-25] VITALS (18 sets, daily range): BP systolic 89–116; BP diastolic 68–96; BMI 21.4
[2025-04-25 04:05] LABS: Hematocrit 42.0 % (37.0-47.0); Hemoglobin 14.3 g/dL (12.0-16.0); Mean Corp Hgb Conc. 34.0 g/dL (33.0-37.0); Mean Corpuscular Volume 93.3 fL (81.0-99.0); Platelet Count 260 10^3/uL (130-400); Red Cell Dist. Width 14.8 % (11.5-14.5)
[2025-04-25 04:29] LABS: Blood Urea Nitrogen 18 mg/dl (7-17); Calcium 9.0 mg/dl (8.4-10.2); Carbon Dioxide 24 mmol/L (22-30); Chloride 109 mmol/L (98-107); Estimated Creatinine Clearance 75 ml/min; Glucose 97 mg/dl (70-99); Potassium 4.0 mmol/L (3.5-5.1); Sodium 137 mmol/L (135-145); eGFR > 60.00
--- NOTE | 2025-04-25 05:30 | PTCARENOTE ---
Pt AFib with HR 99-110 BPM. Pt denies any discomfort. Amio gtt per order.
[2025-04-25] MEDS: DIOVAN 40 MG PO (08:25)
[2025-04-25] MEDS: ELIQUIS 5 MG PO ×2 (08:25→19:48)
[2025-04-25] MEDS: TOPROL XL 25 MG PO (08:25)
[2025-04-25] MEDS: THERAGRAN 1 TABLET PO (08:25)
--- NOTE | 2025-04-25 12:35 | W.PN.UPDATE ---
Update Note
Progress Note Update
EP Note
Consult dictated
Add Amio 400 BID
Move to early ablation.
Stop Amio 3-6 months after ablation
Add meds for HFrEF as BP/labs allow
[2025-04-25] MEDS: PACERONE 400 MG PO ×2 (14:22→22:10)
--- NOTE | 2025-04-25 16:46 | W.PN.HOSP.TC ---
Today's Communication/Plan
-
Amio load for A-fib
Eliquis
GDMT initiated for cardiomyopathy including beta-simone, ARB, Lasix. Monitor hemodynamics over the next 24 to 48 hours prior to discharge
Assessment / Plan
Assessment / Plan
Impression
Patient is a 74 years old female with history of paroxysmal A-fib,, CHF mildly reduced EF, colorectal carcinoma who presents to the emergency room with exertional dyspnea, chest pressure and palpitations. Patient has been hospitalized in 2019 when
found to be in paroxysmal A-fib, CHF, pleural effusion requiring thoracentesis. At that time patient required cardioversion and was discharged on beta-simone and Eliquis. Shortly after within the months as patient could recall she made decision
to stop all the medications given absence of symptoms. She had no cardiology follow-up since that time. Her most recent hospitalization was for elective sigmoid resection for colorectal carcinoma back in May 2023. At that time patient reports
no cardiovascular issues.
Paroxysmal atrial fibrillation with rapid ventricular response.
Acute CHF reduced EF.
Elevated transaminases, mild and likely secondary to congestion.
History of moderate to severe TR in the settings of volume overload.
History of pleural effusion related to CHF requiring thoracentesis in 2019
Plan.
Paroxysmal atrial fibrillation with rapid ventricular response.
Status post DCCV cardioversion 04/23, successful to sinus rhythm.
Back to A-fib with RVR as of 04/24
Initiated on IV and transition to oral amiodarone load
Initiated on metoprolol XL 25 mg daily
CV score 3. Initiated anticoagulation with Eliquis, first dose given prior to DCCV. Bridging with therapeutic dose of Lovenox pending ischemic evaluation
Cardiomyopathy
KEILA estimated LVEF 15%
2D echo pending for reassessment
Suspect nonischemic cardiomyopathy with longstanding A-fib
Ischemic evaluation left heart cath planned for 04/24
Adjust GDMT pending pricing for SGLT2 inhibitor, ARNI
Started on ARB and oral Lasix
Elevated transaminases
No GI symptoms
Suspect congestion
Monitor trend
Anticipated Discharge: 24 - 48 hours
Subjective/Interval History
-
Date of Service: April 25, 2025
Objective Data
-
Vital Signs:
Vital Signs
Temp Pulse Resp BP Pulse Ox
97.9 F 73 14 102/73 95
04/25/25 15:04 04/25/25 15:04 04/25/25 15:04 04/25/25 14:22 04/25/25 15:04
I&O
04/24/25 04/25/25 04/26/25
06:59 06:59 06:59
Intake Total 200 / 200
Output Total 3250 / 3250 330 / 330 500 / 500
Balance -3250 / -3250 -130 / -130 -500 / -500
--- NOTE | 2025-04-25 19:07 | PTCARENOTE ---
~[id number]: Handoff report received from nightshift RN. Pt AOx4, Afib 90s-120s on tele, up to 140s with movement, SBP 100s, RA satting 97%. Amio infusing at this time per protocol. Palpable pulses, no edema. R radial site CDI and ecchymotic. Weight
obtained this AM. Around 0900 amio gtt d/c'd per protocol and PIV removed. All needs met at this time, call mcgee within reach.
~8565-0861: PO amio started per order. HR remains afib 120s at this time. All needs met, call mcgee within reach.
~3814-2764: Patient independent in room. Afib 120s-140s, but up to as high as 180s while in bathroom, patient remained asymptomatic however. All other VSS. All needs met at this time, call mcgee within reach. Handoff report given to nightshift RN.
--- NOTE | 2025-04-25 23:52 | PTCARENOTE ---
Addendum entered by Kylee Jarrett RN 04/26/25 07:02:
correction - old amiodarone IV site on left forearm, not right
Original Note:
Pt. remains in A-fib, rate 90's-140's with activity. Complaining of irritation at old right FA IV site (previous amio infusion). Area slightly red and firm without pain, no drainage. IV nurse called and came to bedside, recommended ice and
elevation. Ice pack provided, pt. resting quietly.
[2025-04-26 03:51] VITALS: BP 86/66
[2025-04-26 03:53] VITALS: BMI 21.6
[2025-04-26 06:53] VITALS: BP 97/76
[2025-04-26 07:57] VITALS: BP 92/82
[2025-04-26] MEDS: PACERONE 400 MG PO (07:57)
[2025-04-26] MEDS: THERAGRAN 1 TABLET PO (07:57)
[2025-04-26] MEDS: ELIQUIS 5 MG PO (07:57)
[2025-04-26 07:59] VITALS: BP 103/82
[2025-04-26] MEDS: TOPROL XL 25 MG PO (08:00)
[2025-04-26] MEDS: LASIX 20 MG PO (08:00)
--- NOTE | 2025-04-26 08:06 | W.PN.CD ---
Addendum entered and electronically signed by Rosanna Sexton MD 04/26/25 09:46:
Also Eliquis 5mg po bid
Original Note:
Today's Communication / Plan
-
ok to discharge home:
continue Amiodarone 400mg BID x 14 days then decreased to 200mg daily
GDMT: -Diuretics: lasix 20mg po daily
-Beta Ami: Metoprolol succinate 25 mg daily.
-ACEI/ARB/ARNi: Valsartan 40 mg PO daily.
-MRA: no bp room right now, consider as op
-SGLT2i: dapagliflozin 10 mg daily.
-ICD: Not yet indicated
Impression / Plan
-
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
#HFrEF
-Worsening (EF ~15-20%, previously 45-50% on 01/10/2020, improving to 55-60% on 05/05/2020).
-Multiple possible mechanisms, including tachy induced from AF RVR, <del>ischemia</del> and/or <del>stress</del> <del>induced</del> <del>with</del> <del>recent</del> <del></del> <del>in</del> <del>family.</del>
-KEILA cardioversion yesterday, but she has lapsed back into atrial fibrillation after DCCV
-GDMT as hemodynamics will tolerate:
-Diuretics: lasix 20mg po daily
-Beta Ami: Metoprolol succinate 25 mg daily.
-ACEI/ARB/ARNi: Valsartan 40 mg PO daily.
-MRA: no bp room right now, consider as op
-SGLT2i: dapagliflozin 10 mg daily.
-ICD: Not yet indicated.
#Atrial fibrillation
-Presented with rapid ventricular response, duration unknown.
-NSR restored after KEILA guided DCCV, subsequently deteriorated into AF-RVR after cardioversion
-Rate/rhythm control with metoprolol, amiodarone gtt.
-plan is for transient amiodarone use to bridge to urgent op ablation.
-will have [facility] office expedite c /s with Dr Ledesma
-CHADS2-Vasc = 3 (CHF, Age x1, Female).
-Apixaban
#Moderate to severe MR
-New diagnosis.
-Contributing to the patient's HFrEF and AF.
-Likely functional in nature given component of CHF and HEALTH EDUCATION ASSISTANT.
-Monitor with diuresis.
-LVEF < 20% makes the patient less than ideal for M-JORGE.
#Colorectal cancer
-Chronic, s/p resection 2022.
-Stable.
Subjective/Interval History:
rates improving but not perfect, she has no dizziness with ambulation or cp
DATA:
Transesophageal echocardiogram, 04/23/2025:
SUMMARY
1. Dilated LV with severely reduced systolic function.
2. LVEF is 15-20% by visual estimation. Global diffuse hypokinesis.
3. Normal RV size with reduced systolic function.
4. Moderate to severe likely functional mitral regurgitation.
5. No left atrial appendage thrombus.
6. No prior study available for comparison.
Transthoracic echocardiogram, 04/23/2025:
SUMMARY
1. Left ventricular ejection fraction is moderately reduced with an ejection fraction of 32 % by Wiggins's biplane method of discs.
2. Stage III diastolic dysfunction suggestive of restricted filling pattern and increased filling pressures
3. Moderate to severe mitral valve regurgitation.
4. Moderate to severe tricuspid regurgitation.
5. Estimated pulmonary artery pressure of 51 mmHg assuming a right atrial pressure of 3 mmHg.
6. Compared to the prior on 05/05/2020, the prior echocardiogram was normal.
R/LHC 04/24/25:
Right dominant circulation with no coronary artery disease.
HEMODYNAMIC DATA
Weight (kg):57.6
AO (s/d/x, mmHg): 103/63/76
LV (s/x, mmHg): 103/20
PCWP (a/v/x, mmHg): 35/40/23
PA (s/d/x, mmHg): /
RV (s/x, mmHg):
RA (a/v/x, mmHg):
SVC SvO2 (%):62.2
IVC SvO2 (%):Not obtained.
RA SvO2 (%):Not obtained.
RV SvO2 (%):Not obtained.
PA SvO2 (%):60.5
SaO2 (%):86.9
Hbg (g/dL):15.5
LESTER
CO (L/min): 3.66
CI (L/min/m2): 2.25
TPG (mmHg): 6
PVR (Mohr Units): 1.64
SVR (dynes*seconds*cm^-5): 1399
AVO2 Diff (Volume %): 5.57
Physical Exam
Vital Signs/Labs
Vital Signs
Temp Pulse Resp BP Pulse Ox
97.7 F 134 16 103/82 97
04/26/25 06:51 04/26/25 07:00 04/26/25 06:51 04/26/25 08:00 04/26/25 06:51
04/25/25 04/26/25 04/27/25
06:59 06:59 06:59
Actual Weight 129 lb 10.109 oz
04/25/25 03:56
04/25/25 03:56
APTT Cancelled 04/23/25 12:45
Magnesium 2.1 mg/dl (1.6-2.3) 04/22/25 09:21
04/22/25 04/22/25
09:21 09:21
Gms-F-Akmaiyywjkj Pept Cancelled 4300
Physical Exam
Constitutional: No acute distress
Cardiovascular: JVD pressure is normal, Systolic murmur absent, Diastolic murmur absent, Rhythm/rate is irregular and S1S2 is normal
Respiratory: Respiratory effort normal, Lungs clear to auscul., Wheeze Absent, Crackles Absent and Rhonchi Absent
Neuro/Psych: AO x 3
Data Reviewed
-
Date of Service: April 26, 2025
Medical Decision Making: Review of Case with other Provider (Reviewed with Dr Salinas, gary for discharge)
--- NOTE | 2025-04-26 08:24 | W.PN.HOSP.TC ---
Addendum entered and electronically signed by Sandeep Salinas MD 04/26/25 12:54:
Addendum
Called by nurse to report amiodarone infiltration that happened yesterday. I examined left arm of the patient, mild induration but nontender. Good peripheral pulse. She denies pain. Continue to raise arm and use warm compresses as needed.
Addendum entered and electronically signed by Sandeep Salinas MD 04/26/25 12:51:
Addendum
Seen by color dipper. Discussed with color dipper on-call Dr. Rafael Cox, recommendation for medications was given.
Discussed with patient, would like to go home
Patient is independent and does not need billing and accounting staff assistant ambulation or at home
Total discharge time to see the patient, examined the patient, discussed discharge plan and instructions with patient, color dipper, nursing staff around 65-minute
Original Note:
Today's Communication/Plan
-
possible dc if clear by cardiology
Assessment / Plan
Assessment / Plan
Physical Exam
-
General: Well Developed and No Apparent Distress
HEENT: Normocephalic, Atraumatic and Moist Mucous Membranes
Respiratory: Clear to Auscultation
Cardiac: Regular Rhythm and S1/S2; Negative Murmur, Rub or Gallop
GI: Soft, Nontender, Nondistended and Normal Bowel Sounds; Negative Organomegaly
Rectal: Deferred by Provider
Musculoskeletal: No Clubbing, No Cyanosis and No Edema
Skin: Negative Rash
Neuro: Nonfocal/Grossly Intact
Impression
Patient is a 74 years old female with history of paroxysmal A-fib,, CHF mildly reduced EF, colorectal carcinoma who presents to the emergency room with exertional dyspnea, chest pressure and palpitations. Patient has been hospitalized in 2019 when
found to be in paroxysmal A-fib, CHF, pleural effusion requiring thoracentesis. At that time patient required cardioversion and was discharged on beta-simone and Eliquis. Shortly after within the months as patient could recall she made decision
to stop all the medications given absence of symptoms. She had no cardiology follow-up since that time. Her most recent hospitalization was for elective sigmoid resection for colorectal carcinoma back in May 2023. At that time patient reports
no cardiovascular issues.
Paroxysmal atrial fibrillation with rapid ventricular response.
Acute CHF reduced EF.
Elevated transaminases, mild and likely secondary to congestion.
History of moderate to severe TR in the settings of volume overload.
History of pleural effusion related to CHF requiring thoracentesis in 2019
Plan.
Paroxysmal atrial fibrillation with rapid ventricular response.
Normal TSH
Status post DCCV cardioversion 04/23, successful to sinus rhythm.
Back to A-fib with RVR as of 04/24
Initiated on IV and transition to oral amiodarone load
Initiated on metoprolol XL 25 mg daily
CV score 3. Initiated anticoagulation with Eliquis, first dose given prior to DCCV. Bridging with therapeutic dose of Lovenox pending ischemic evaluation
Cardiomyopathy
KEILA estimated LVEF 15%
2D echo pending for reassessment
Suspect nonischemic cardiomyopathy with longstanding A-fib/ tachycardia induced CMP
Ischemic evaluation left heart cath showed clear cornonaries
Adjust GDMT pending pricing for SGLT2 inhibitor, ARNI
Started on ARB and oral Lasix
Elevated transaminases
No GI symptoms
Suspect congestion
Monitor trend, coming down
Total time spent to see the patient, examine the patient, review data lab result, discuss treatment plan with patient, nursing staff around 55 minutes
Anticipated Discharge: Within 24 hours
Subjective/Interval History
-
Date of Service: April 26, 2025
No chest pain
No sob
No dizziness
Objective Data
-
Vital Signs:
Vital Signs
Temp Pulse Resp BP Pulse Ox
97.7 F 134 16 103/82 97
04/26/25 06:51 04/26/25 07:00 04/26/25 06:51 04/26/25 08:00 04/26/25 06:51
I&O
04/25/25 04/26/25 04/27/25
06:59 06:59 06:59
Intake Total 200 / 200 240 / 240
Output Total 330 / 330 1200 / 1200
Balance -130 / -130 -960 / -960
[2025-04-26 09:27] VITALS: BP 96/68
[2025-04-26] MEDS: DIOVAN 40 MG PO (09:33)
[2025-04-26 11:04] VITALS: BP 99/76
--- NOTE | 2025-04-26 12:29 | PTCARENOTE ---
Pt w/old amiodarone IV site on left forearm. Area slightly red and firm without pain. Dr. Salinas aware and at bedside. Recommended pt to elevate and use warm compress. Pt verbalizes understanding.
--- NOTE | 2025-04-26 12:43 | W.DCSUMMARY ---
Discharge Summary
Discharge Data
Date of Admission: 04/22/25
Date of Discharge: 04/26/25
-
Pending Results: No
Hospital Course
74 years old female presented to the hospital with shortness of breath and fatigue, was found to be in rapid atrial fibrillation. She had history of atrial fibrillation in 2019 complicated by heart failure. She did not keep with Cardiology followup
and stopped her medications. Patient was evaluated by manager medical device. Echocardiogram showed left ventricular ejection fraction 15 to 20%, moderate to severe mitral regurgitation, normal right ventricular size. A cardioversion was performed after
thrombus was excluded in the left atrium, but it had quickly recurred. She underwent cardiac catheterization with no evidence of coronary artery disease. Echocardiogram reveals significant mitral and tricuspid regurgitation. Patient was started
on Eliquis, she verbalized understanding to potential side effects of oral systemic anticoagulation. She was started on medication for heart failure including Lasix, metoprolol, Diovan, dapagliflozin. Patient reported her intention to follow-up
with manager medical device this time. She was given a prescription to do blood work in the outpatient setting. She remained hemodynamically stable. Further adjustment to her medications for heart failure will be performed in outpatient setting. Patient
was discharged in a stable condition.
Discharge Plan
-
Patient Disposition: Home (Routine Discharge)
Discharge Diagnosis/Procedures: Atrial fibrillation with rapid rates, post Cardioversion
New acute Heart failure
Cardiac cath 04/24
Condition: Good
Diet: 2 Gram Sodium and Restrict fluids to 48 oz
Driving Restrictions: No driving for 24 hours
Blood Work: BMP,CBC,LFT
Specialty Instructions: Weigh Daily- Call MD for wt gain/loss 3 lbs overnight/5 lbs in 1 week
Stand Alone Forms: DC Instructions- Cath/EP Lab
Referrals:
Myriam Cuellar CRNP [Specified Professional Personl, Cardiology] - 05/12/25 1:40 pm
Judy Sherman MD [Family Provider, Internal Medicine]
Prescriptions:
New
amiodarone [Pacerone] 200 mg Tablet
400 mg PO DIRECTED Qty: 72 0RF
Rx Instructions:
Take 400 mg BID for 14 days then 200 mg daily afterwards
furosemide 20 mg Tablet
20 mg PO DAILY Qty: 30 0RF
valsartan 40 mg Tablet
40 mg PO DAILY Qty: 30 0RF
Eliquis 5 mg Tablet
5 mg PO BID Qty: 60 0RF
metoprolol succinate 25 mg Tablet Extended Release 24 Hr
25 mg PO DAILY Qty: 30 0RF
dapagliflozin propanediol [Farxiga] 10 mg tablet
10 mg PO DAILY Qty: 30 0RF
Continued
Centrum Silver Women 8 mg iron-400 mcg-50 mcg Tablet
1 tab PO DAILY
acetaminophen 325 mg tablet
650 mg PO Q4HPRN PRN (Reason: mild pain) Qty: 1 0RF
Discharge Orders:
Discharge Patient (As Directed); Ordered 04/26/25
Ordered By: Sandeep Salinas
Care Plan Goals
Care Plan Goals:
Problem: Readiness for enhanced knowledge related to diagnosis and treatment plan
Goal: Understand your diagnosis and treatment plan needs, including medications if applicable.
Instructions: Know your diagnosis, underlying causes and treatment plan options, including medications if applicable. Consult with your health care team to learn about your diagnosis and treatment plan, including medications if applicable.
Discharge Date and Time
Print Language: [place]
--- NOTE | 2025-04-26 14:44 | PTCARENOTE ---
IV and tele removed. Belongings collected and sent home w/ pt. Discharge instructions reviewed w/ pt and verbalizes understanding. Escorted via WC and staff assist. D/c to home w/ family member.
== END 2025-04-26 14:45 | disposition home or self-care (01) | DRG 286 ==
LOC: IVU 12:08
PROVIDERS: Internal Medicine Cardiovascular Disease; Nurse Practitioner Adult Health; Physician Assistant; ADMITTING PHYSICIAN Internal Medicine; ATTENDING PHYSICIAN Internal Medicine; CONSULT PHYSICIAN Internal Medicine Cardiovascular Disease; EMERGENCY PHYSICIAN Emergency Medicine; FAMILY PHYSICIAN Internal Medicine
PROC: B24BZZ4 Ultrasonography of Heart with Aorta, Transesophageal (ICD-10-PCS; 2025-04-23)
PROC: 5A2204Z Restoration of Cardiac Rhythm, Single (ICD-10-PCS; 2025-04-23)
PROC: B2111ZZ Fluoroscopy of Multiple Coronary Arteries using Low Osmolar Contrast (ICD-10-PCS; 2025-04-24)
PROC: 4A023N8 Measurement of Cardiac Sampling and Pressure, Bilateral, Percutaneous Approach (ICD-10-PCS; 2025-04-24)
PROC: B2151ZZ Fluoroscopy of Left Heart using Low Osmolar Contrast (ICD-10-PCS; 2025-04-24)
DX: I48.0 Paroxysmal atrial fibrillation (principal); I50.21 Acute systolic (congestive) heart failure; I08.1 Rheumatic disorders of both mitral and tricuspid valves; I42.8 Other cardiomyopathies; R74.01 Elevation of levels of liver transaminase levels; Z85.048 Personal history of other malignant neoplasm of rectum, rectosigmoid junction, and anus; Z90.49 Acquired absence of other specified parts of digestive tract; Z88.5 Allergy status to narcotic agent; Z91.148 Patient's other noncompliance with medication regimen for other reason; Z63.4 Disappearance and death of family member
CPT/HCPCS: 71045; 80048; 80053; 82248; 83735; 83880; 84443; 84484; 85025; 85027; 85730; 92960; 93005; 93306; 93312; 93320; 93325; 93460; 96365; 96366; 96375; 99291; C1894; Q9967

== ENCOUNTER → 2025-07-28 09:02 | Outpatient (REF) | payer OTHER, SELFPAY | LOC: HWRCS 09:02 | PROVIDERS: ATTENDING PHYSICIAN Nurse Practitioner; FAMILY PHYSICIAN Internal Medicine | DX: I42.8 Other cardiomyopathies (principal) | CPT/HCPCS: 93308 ==